=== PATIENT | female | born 1980 | race Two or more races ===

== ENCOUNTER 2025-03-03 19:56 | Inpatient (IN) | payer OTHER ==
[~2025-03-03] VITALS: Ht 154.9 cm; Wt 76.3 kg
[2025-03-03 20:33] LABS: BASOPHILS % (AUTO) 0.2 % (0.0-2.0); EOSINOPHILS % (AUTO) 0 % (1.0-6.0); HEMATOCRIT 42.6 % (36-46); LYMPHOCYTES # (AUTO) 1.1 K/uL (1.0-4.8); LYMPHOCYTES % (AUTO) 6.1 % (22.0-44.0); MEAN CORPUSCULAR HEMOGLOBIN 30.3 pg (26.0-34.0); MEAN CORPUSCULAR HGB CONC 32.9 G/dL (31.0-37.0); MEAN CORPUSCULAR VOLUME 92 fL (80-100); MONOCYTES % (AUTO) 5.3 % (2.0-9.0); NEUTROPHILS # (AUTO) 16.2 K/uL (1.8-7.7); PLATELET COUNT (AUTO) 276 K/uL (150-450); RED BLOOD CELL COUNT(AUTO) 4.62 MIL/uL (4.00-5.20); RED CELL DISTRIBUTION WIDTH 12.9 % (11.5-14.5); WHITE BLOOD COUNT (AUTO) 18.3 K/uL (4.5-11.0)
[2025-03-03 20:33] LABS: COVID AG,FIA SOURCE NASAL SWAB
[2025-03-03 20:42] LABS: ANION GAP 9 mmol/L (8-16); CALCIUM, TOTAL 8.8 mg/dL (8.8-10.5); CARBON DIOXIDE 25 mmol/L (22-29); CHLORIDE 98 mmol/L (98-107); CREATININE 0.93 mg/dL (0.60-1.30); GLOMERULAR FILTR. RATE CALC > 60 mL/min (>60); GLUCOSE,RANDOM 135 mg/dL (70-110); POTASSIUM 3.6 mmol/L (3.5-5.1); SODIUM SERUM 132 mmol/L (136-145); UREA NITROGEN, BLOOD 9 mg/dL (7-18)
[2025-03-03 20:48] LABS: ALBUMIN 3.4 g/dL (3.4-5.0); BILIRUBIN,DIRECT 0.2 mg/dL (0.00-0.20); BILIRUBIN,TOTAL 1.1 mg/dL (0.1-1.0)
[2025-03-03 20:50] LABS: NEUTROPHILS % (AUTO) 88.4 % (40.0-70.0)
[2025-03-03 21:02] LABS: SARS-COV2 (COVID) ANTIGEN,FIA Negative (Negative)
[2025-03-03 21:03] LABS: INFLUENZA TYPE A NEGATIVE FOR TYPE A (NEGATIVE); INFLUENZA TYPE B NEGATIVE FOR TYPE B (NEGATIVE)
[2025-03-03 21:40] LABS: APPEARANCE,URINE CLEAR (CLEAR); BILIRUBIN,URINE NEGATIVE (NEGATIVE); COLOR,URINE LIGHT YELLOW (YELLOW); GLUCOSE, URINE (UA) NEGATIVE (NEGATIVE); KETONES,URINE NEGATIVE (NEGATIVE); LEUKOCYTE ESTERASE ,URINE NEGATIVE (NEGATIVE); NITRATE,URINE NEGATIVE (NEGATIVE); OCCULT BLOOD,URINE SMALL (NEGATIVE); PH,URINE 5.5 (5.0-8.0); PROTEIN,URINE NEGATIVE (NEGATIVE); SPECIFIC GRAVITIY, URINE 1.015 (1.003-1.030); UROBILINOGEN,URINE <=1.0 mg/dL (<=1.0)
[2025-03-03 21:43] LABS: ALCOHOL, URINE DRUG SCREEN NEGATIVE (NEGATIVE); AMPHET/METH SCREEN,URINE NEGATIVE (NEGATIVE); BARBITURATE SCREEN, URINE NEGATIVE (NEGATIVE); BENZODIAZEPINES SCREEN,URINE NEGATIVE (NEGATIVE); CANNABINOID SCREEN,URINE NEGATIVE (NEGATIVE); COCAINE SCREEN,URINE NEGATIVE (NEGATIVE); METHADONE SCREEN, URINE NEGATIVE (NEGATIVE); OPIATE SCREEN,URINE NEGATIVE (NEGATIVE); PHENCYCLIDINE SCREEN,URINE NEGATIVE (NEGATIVE)
[2025-03-03 21:51] LABS: BACTERIA,URINE Rare /HPF (None Seen); RBC,URINE 0-2 /HPF (0-2); SQUAMOUS EPITHELIAL CELL,UR Few /LPF (None Seen); WBC,URINE 0-2 /HPF (0-5)
[2025-03-03 22:01] LABS: TOTAL PROTEIN, SERUM 7.4 g/dL (6.4-8.2)
[2025-03-03 22:14] LABS: PH,URINE DRUG SCREEN 5.5 (5.0-8.0)
[2025-03-03] MEDS: MORPHINE SULFATE 2 MG/ML SYRINGE IVP ONE (22:21)
[2025-03-03] MEDS ORDERED: SODIUM CHLORIDE 0.9% 100 ML ONE (22:22)
[2025-03-03] MEDS ORDERED: IOHEXOL 350 MG/ML 100 ML VIAL ONE (22:22)
[2025-03-03 22:53] LABS: LACTIC ACID 1.3 mmol/L (0.4-2.0)
[2025-03-03] MEDS: FAMOTIDINE 20 MG/2 ML VIAL IVP ONE (23:48)
[2025-03-03] MEDS: ACETAMINOPHEN 1000 MG/ISO-OSM 100 ML IV ONE (23:48)
[2025-03-03] MEDS: SODIUM CHLORIDE 0.9% 2,200 ML IV ONE (23:49)
[2025-03-03] MEDS: PIPERACILLIN/TAZO 3.375 GM/D5W 50 ML IV ONE (23:50)
[2025-03-04] MEDS ORDERED: ZOLPIDEM TARTRATE 5 MG TABLET PO PRN (00:15)
[2025-03-04] MEDS ORDERED: MAGNESIUM HYDROXIDE SUSPENSION 30 ML UDCUP PO PRN (00:15)
[2025-03-04] MEDS ORDERED: ACETAMINOPHEN 325 MG TABLET PO PRN (00:15)
[2025-03-04] MEDS ORDERED: MORPHINE SULFATE 2 MG/ML SYRINGE IVP PRN (00:15)
[2025-03-04] MEDS ORDERED: ONDANSETRON HCL 4 MG/2 ML VIAL IVP PRN (00:15)
[2025-03-04] MEDS ORDERED: BISACODYL 10 MG RECTAL RECTAL SUPPOSITORY PR PRN (00:15)
[2025-03-04] MEDS ORDERED: MORPHINE SULFATE/PF 0.5 MG/ML 10 ML AMP ONE (01:30)
[2025-03-04] MEDS ORDERED: FentaNYL CITRATE PF 100 MCG/2 ML VIAL ONE (01:30)
[2025-03-04] MEDS ORDERED: DEXAMETHASONE SOD PHOS 4 MG/ML VIAL ONE (01:30)
[2025-03-04] MEDS ORDERED: SUGAMMADEX SODIUM 200 MG/2 ML VIAL IVP ONE (01:30)
[2025-03-04] MEDS ORDERED: MIDAZOLAM HCL 2 MG/2 ML VIAL ONE (01:30)
[2025-03-04] MEDS ORDERED: ACETAMINOPHEN/ISO-OSM 1000 MG/100 ML BOTTLE IV ONE (01:30)
[2025-03-04] MEDS ORDERED: ROCURONIUM BROMIDE 10 MG/ML 5 ML VIAL ONE (01:30)
[2025-03-04] MEDS ORDERED: KETOROLAC TROMETHAMINE 60 MG/2 ML VIAL IM ONE (01:30)
[2025-03-04] MEDS ORDERED: ONDANSETRON HCL 4 MG/2 ML VIAL ONE (01:30)
[2025-03-04] MEDS ORDERED: PROPOFOL 1% 20 ML VIAL IVP ONE (01:30)
[2025-03-04] MEDS ORDERED: LIDOCAINE/PF 2% 5 ML VIAL ONE (01:30)
[2025-03-04 01:45] VITALS: BP 108/71; PULSE 86; RESP 19; TEMP 98.1; O2SAT 97
[2025-03-04 04:29] VITALS: BP 127/83; PULSE 82; RESP 18; TEMP 98.1; O2SAT 98
[2025-03-04 07:16] LABS: BASOPHILS % (AUTO) 0.1 % (0.0-2.0); EOSINOPHILS % (AUTO) 0.1 % (1.0-6.0); HEMATOCRIT 38.7 % (36-46); HEMOGLOBIN 12.8 g/dL (12.0-16.0); LYMPHOCYTES # (AUTO) 1.7 K/uL (1.0-4.8); LYMPHOCYTES % (AUTO) 12.7 % (22.0-44.0); MEAN CORPUSCULAR HEMOGLOBIN 30.7 pg (26.0-34.0); MEAN CORPUSCULAR HGB CONC 33.1 G/dL (31.0-37.0); MEAN CORPUSCULAR VOLUME 93 fL (80-100); MONOCYTES % (AUTO) 7.8 % (2.0-9.0); NEUTROPHILS # (AUTO) 10.5 K/uL (1.8-7.7); NEUTROPHILS % (AUTO) 79.3 % (40.0-70.0); PLATELET COUNT (AUTO) 239 K/uL (150-450); RED BLOOD CELL COUNT(AUTO) 4.18 MIL/uL (4.00-5.20); RED CELL DISTRIBUTION WIDTH 13.1 % (11.5-14.5); WHITE BLOOD COUNT (AUTO) 13.2 K/uL (4.5-11.0)
[2025-03-04 07:37] LABS: ANION GAP 7 mmol/L (8-16); CALCIUM, TOTAL 7.6 mg/dL (8.8-10.5); CARBON DIOXIDE 24 mmol/L (22-29); CHLORIDE 106 mmol/L (98-107); CREATININE 0.58 mg/dL (0.60-1.30); GLOMERULAR FILTR. RATE CALC > 60 mL/min (>60); GLUCOSE,RANDOM 102 mg/dL (70-110); POTASSIUM 3.3 mmol/L (3.5-5.1); SODIUM SERUM 137 mmol/L (136-145); UREA NITROGEN, BLOOD 6 mg/dL (7-18)
[2025-03-04] MEDS: HEPARIN SODIUM,PORCINE 5,000 UNITS/ML VIAL SQ SCH (08:00)
[2025-03-04 08:01] VITALS: BP 124/72; PULSE 87; RESP 18; TEMP 98.2; O2SAT 98
[2025-03-04] MEDS ORDERED: RINGERS SOLUTION,LACTATED 1,000 ML IV ONE (08:12)
[2025-03-04] MEDS: PANTOPRAZOLE SODIUM 40 MG DR TABLET PO SCH (09:00)
[2025-03-04] MEDS: DOCUSATE SODIUM 100 MG CAPSULE PO SCH (09:00)
[2025-03-04] MEDS ORDERED: HYDROmorphone HCL 2 MG/ML SYRINGE IVP PRN (09:15)
[2025-03-04] MEDS ORDERED: FentaNYL CITRATE PF 100 MCG/2 ML VIAL IVP PRN (09:15)
[2025-03-04] MEDS ORDERED: MEPERIDINE-PF 25 MG/ML VIAL IVP PRN (09:15)
[2025-03-04] MEDS ORDERED: SODIUM CHLORIDE 0.9% 1,000 ML ONE (09:29)
[2025-03-04] MEDS: BUPIVACAINE 0.25%/EPI 1:200,000/PF 10 ML VIAL ONE (09:42)
[2025-03-04] MEDS: PIPERACILLIN/TAZO 3.375 GM/D5W 50 ML IV SCH (09:48)
[2025-03-04 10:15] VITALS: BP 105/75; PULSE 76; RESP 18; TEMP 98.5; O2SAT 97
[2025-03-04] MEDS: SODIUM CHLORIDE 0.9% 1,000 ML IV ONE (13:35)
[2025-03-04 15:53] VITALS: BP 118/80; PULSE 78; RESP 18; TEMP 98; O2SAT 96
[2025-03-04] MEDS: OXYGEN THERAPY IH SCH (20:00)
[2025-03-04 20:22] VITALS: BP 104/68; PULSE 82; RESP 18; TEMP 98.1; O2SAT 97
[2025-03-04] MEDS ORDERED: POTASSIUM CHL 10 MEQ/WATER 50 ML IV PRN (22:15)
[2025-03-05 00:01] VITALS: BP 103/66; PULSE 71; RESP 18; TEMP 98.2; O2SAT 100
[2025-03-05] MEDS: POTASSIUM CHLORIDE 20 MEQ ER TABLET PO PRN (00:37)
[2025-03-05 03:50] VITALS: BP 105/66; PULSE 78; RESP 18; TEMP 98.2; O2SAT 98
[2025-03-05] MEDS: HYDROCODONE/ACETAMINOPHEN 5-325 MG TABLET PO PRN (04:08)
[2025-03-05] MEDS ORDERED: SODIUM CHLORIDE 0.9% 250 ML IV ONE (06:46)
[2025-03-05 08:01] LABS: ANION GAP 7 mmol/L (8-16); CALCIUM, TOTAL 8.3 mg/dL (8.8-10.5); CARBON DIOXIDE 25 mmol/L (22-29); CHLORIDE 106 mmol/L (98-107); CREATININE 0.68 mg/dL (0.60-1.30); GLOMERULAR FILTR. RATE CALC > 60 mL/min (>60); GLUCOSE,RANDOM 91 mg/dL (70-110); SODIUM SERUM 138 mmol/L (136-145); UREA NITROGEN, BLOOD 6 mg/dL (7-18)
[2025-03-05 08:10] LABS: EOSINOPHILS % (AUTO) 0 % (1.0-6.0); HEMATOCRIT 37.4 % (36-46); HEMOGLOBIN 12.3 g/dL (12.0-16.0); LYMPHOCYTES # (AUTO) 1.7 K/uL (1.0-4.8); LYMPHOCYTES % (AUTO) 11.8 % (22.0-44.0); MEAN CORPUSCULAR HEMOGLOBIN 30.7 pg (26.0-34.0); MEAN CORPUSCULAR VOLUME 93 fL (80-100); MONOCYTES # (AUTO) 0.8 K/uL (0.1-1.0); MONOCYTES % (AUTO) 5.8 % (2.0-9.0); NEUTROPHILS # (AUTO) 11.8 K/uL (1.8-7.7); NEUTROPHILS % (AUTO) 82.4 % (40.0-70.0); PLATELET COUNT (AUTO) 233 K/uL (150-450); RED BLOOD CELL COUNT(AUTO) 4.01 MIL/uL (4.00-5.20); RED CELL DISTRIBUTION WIDTH 13.3 % (11.5-14.5); WHITE BLOOD COUNT (AUTO) 14.4 K/uL (4.5-11.0)
[2025-03-05 08:34] VITALS: BP 111/68; PULSE 70; RESP 18; TEMP 98.4; O2SAT 98
[2025-03-05 12:58] VITALS: BP 107/66; PULSE 76; RESP 18; TEMP 98.4; O2SAT 99
[2025-03-05] MEDS ORDERED: AMOX1TAB15 PO (13:57)
[2025-03-05 15:20] VITALS: BP 105/66; PULSE 71; RESP 19; TEMP 98.4; O2SAT 99
== END 2025-03-05 16:00 | disposition home or self-care (01) | DRG 854 ==
LOC: EMS 19:56 → EDH 03-04 00:11 → 5S 03-04 01:31
PROVIDERS: ADMIT Internal Medicine; ATTEND Internal Medicine
PROC: 0DNW4ZZ Release Peritoneum, Percutaneous Endoscopic Approach (ICD-10-PCS; 2025-03-04)
PROC: 0DTJ4ZZ Resection of Appendix, Percutaneous Endoscopic Approach (ICD-10-PCS; principal; 2025-03-04 08:45)
DX: A41.9 Sepsis, unspecified organism (principal); E87.1 Hypo-osmolality and hyponatremia; K35.80 Unspecified acute appendicitis; I10 Essential (primary) hypertension; E66.9 Obesity, unspecified; Z20.822 Contact with and (suspected) exposure to COVID-19; N99.4 Postprocedural pelvic peritoneal adhesions; Y83.8 Other surgical procedures as the cause of abnormal reaction of the patient, or of later complication, without mention of misadventure at the time of the procedure; Y92.89 Other specified places as the place of occurrence of the external cause; Z90.49 Acquired absence of other specified parts of digestive tract; Z98.891 History of uterine scar from previous surgery; Z68.31 Body mass index [BMI] 31.0-31.9, adult
CPT/HCPCS: 74177; 80048; 80076; 80307; 81001; 83605; 84703; 85025; 87040; 87804; 88304; 96365; 96375; 99285; G0378; J0131; J1100; J1644; J1885; J2250; J2270; J2274; J2405; J2543; J2704; J3010; J3490; J7030; J7050; J7120